=== PATIENT | female | born 1975 | race Caucasian/White ===

== ENCOUNTER 2019-03-21 11:24 | Day surgery (SDC) | payer OTHER ==
[~2019-03-21] VITALS: Ht 157.5 cm; Wt 73.0 kg
[~2019-03-21 11:24] MED LIST: CEFAZOLIN 2 GM/50 ML (PMX) 50 ML IVPB ONE; CEFAZOLIN 2 GM/50 ML (PMX) 50 ML IVPB SCH; SOD CHLORIDE 0.9% 1,000 ML IV ONE; SOD CHLORIDE 0.9% 1,000 ML IV SCH
[2019-03-21] MEDS ORDERED: BUPIVACAINE 0.5% (SDV) 30 ML INJ ONE (12:13)
[2019-03-21 12:16] VITALS: BP 107/77; PULSE 76; RESP 16
[2019-03-21 12:36] VITALS: Ht 157.5 cm; Wt 73.0 kg
[2019-03-21] MEDS ORDERED: PROPOFOL 100 ML ONE (13:00)
[2019-03-21] MEDS ORDERED: LIDOCAINE 2% (SDV) 5 ML INJ ONE (13:01)
[2019-03-21] MEDS ORDERED: CEFAZOLIN 1 GM INJ ONE (13:08)
[2019-03-21] MEDS ORDERED: LIDOCAINE 1% (MPF) 30 ML INJ ONE (13:17)
[2019-03-21] MEDS ORDERED: DEXAMETHASONE 4 MG/ML 5 ML INJ ONE (13:21)
[2019-03-21] MEDS ORDERED: ONDANSETRON 4 MG INJ ONE (13:22)
[2019-03-21 13:55] VITALS: BP 102/62; PULSE 76; RESP 10
[2019-03-21 14:00] VITALS: BP 98/61; PULSE 76; RESP 12
[2019-03-21] MEDS ORDERED: METOCLOPRAMIDE 10 MG INJ IV PRN (14:00)
[2019-03-21] MEDS ORDERED: OXYCODONE/ACETAMINOPHEN (5/325) TAB PO PRN ×2 (14:00)
[2019-03-21] MEDS ORDERED: HYDROmorphONE 1 MG/5 ML IV SYRINGE IV PRN ×3 (14:00)
[2019-03-21] MEDS ORDERED: FENTAnyl 50 MCG/ML VIAL IV PRN ×3 (14:00)
[2019-03-21] MEDS ORDERED: KETOROLAC 30 MG INJ IV PRN (14:00)
[2019-03-21] MEDS ORDERED: LABETALOL HCL 20MG INJ IV PRN (14:00)
[2019-03-21] MEDS ORDERED: ONDANSETRON 4 MG INJ IV PRN (14:00)
[2019-03-21] MEDS ORDERED: MEPERIDINE 25 MG INJ IV PRN (14:00)
[2019-03-21] MEDS ORDERED: ALBUTEROL 0.083% (NEB) 2.5 MG/3 ML AMP HHN PRN (14:00)
[2019-03-21] MEDS ORDERED: hydrALAzine 20 MG INJ IV PRN (14:00)
[2019-03-21] MEDS ORDERED: DIPHENHYDRAMINE 50 MG INJ IV PRN (14:00)
[2019-03-21] MEDS ORDERED: EPHEDrine 25 MG/5 ML SYG IV PRN (14:00)
[2019-03-21 14:05] VITALS: BP 102/61; PULSE 70; RESP 12
[2019-03-21 14:50] VITALS: BP 112/56; PULSE 72; RESP 18
== END 2019-03-21 16:42 | disposition home or self-care (01) ==
LOC: SDS 11:24
PROVIDERS: ATTEND Surgery
DX: D24.1 Benign neoplasm of right breast (principal); E78.5 Hyperlipidemia, unspecified; E66.9 Obesity, unspecified; D64.9 Anemia, unspecified
CPT/HCPCS: 19120; 88307; J0690; J1100; J2405; J3010; Z7512; Z7610; J7030